=== PATIENT | female | born 1990 | race Two or more races ===

== ENCOUNTER 2022-02-26 16:46 | Emergency (ER) | payer OTHER ==
[~2022-02-26] VITALS: Ht 152.4 cm; Wt 70.3 kg
--- NOTE | 2022-02-26 17:10 | NUR ---
[id number] FROM HOME C/O SYNCOPE, DENIES TRAUMA. PT ON RA NO SIGNS OF DISTRESS OR LABORED BREATHING. PT A/OX3. PT CAME WITH IV ACCESS INSERTED BY COOKIE [email or web address] ATTACHED TO MONITOR. WILL CONTINUE TO MONITOR PT.
--- NOTE | 2022-02-26 17:55 | NUR ---
DR. STRONG AT THE BEDSIDE AT THIS TIME.
--- NOTE | 2022-02-26 18:25 | NUR ---
URINE SPECIMEN COLLECTED ORDERED
[2022-02-26] MEDS ORDERED: IV NS 0.9% 1,000 ML BAG IV ONE (18:30)
[2022-02-26] MEDS ORDERED: KETOROLAC TROMETHAMINE INJ 30 MG/ML VIAL IV ONE (18:30)
[2022-02-26 18:39] LABS: BASOPHILS % (AUTO) 0.3 % (0.0-2.0); EOSINOPHILS % (AUTO) 0.6 % (0.0-6.0); HEMATOCRIT 40 % (33-45); HEMOGLOBIN 13.8 g/dL (11.5-14.8); LYMPHOCYTES # (AUTO) 3.2 K/uL (0.8-4.8); LYMPHOCYTES % (AUTO) 27.2 % (20.0-44.0); MEAN CORPUSCULAR HGB CONC 35 g/dl (31.0-36.0); MEAN CORPUSCULAR VOLUME 93 fL (82-100); MONOCYTES # (AUTO) 0.7 K/uL (0.1-1.30); MONOCYTES % (AUTO) 5.8 % (2.0-12.0); NEUTROPHILS # (AUTO) 7.7 K/uL (1.8-8.9); NEUTROPHILS % (AUTO) 66.1 % (43.0-81.0); PLATELET COUNT (AUTO) 355 K/uL (150-450); RED BLOOD CELL COUNT(AUTO) 4.27 MIL/uL (4.0-5.2); WHITE BLOOD COUNT (AUTO) 11.7 K/uL (4.3-11.0)
[2022-02-26 18:51] LABS: CALCIUM, SERUM 8.8 mg/dL (8.5-10.1); CREATININE 0.7 mg/dL (0.6-1.3); POTASSIUM 3.9 mmol/L (3.5-5.1)
--- NOTE | 2022-02-26 18:54 | NUR ---
URINE HCG NEGATIVE. WILL ADMINISTER TORADOL
[2022-02-26] MEDS ORDERED: KETOROLAC TROMETHAMINE 15 MG/ML VIAL ONE (18:56)
--- NOTE | 2022-02-26 19:23 | NUR ---
REPORT GIVEN TO RICHIE.
--- NOTE | 2022-02-26 21:14 | NUR ---
Patient discharged to home in stable condition. Written and verbal after care instructions given. Patient verbalizes understanding of instruction. IV removed. Catheter intact and site benign. Pressure and 4x4 applied to site. No bleeding noted. PT ambulatory with a steady gait
[2022-02-26 21:15] VITALS: BP 121/72
== END 2022-02-26 21:15 | disposition home or self-care (01) ==
LOC: ER 16:57
DX: E86.0 Dehydration (principal); R55 Syncope and collapse; Z86.69 Personal history of other diseases of the nervous system and sense organs
CPT/HCPCS: 36415; 80048; 84484; 84703; 85025; 85378; 86140; 93005; 96361; 96374; 99285; J1885; J7030